=== PATIENT | male | born 1985 | race Caucasian/White ===

== ENCOUNTER → 2017-09-28 | Outpatient (REF) ==
--- NOTE | 2017-09-28 14:02 | REP ---
LEFT ANKLE, THREE VIEWS: HISTORY: Pain. There is no acute fracture or dislocation. The joint space is normal in appearance. IMPRESSION: There is no acute fracture or dislocation. Signed by J Carlos Vasques MD 09/28/2017 02:05 P
== END ==
LOC: M RAD 11:09
PROVIDERS: ATTEND Nurse Practitioner Family
DX: M25.572 Pain in left ankle and joints of left foot (principal)

== ENCOUNTER 2020-05-29 19:39 | Emergency (ER) | payer OTHER ==
[~2020-05-29] VITALS: Ht 193 cm; Wt 95.9 kg
[2020-05-29] MEDS ORDERED: LIDOCAINE 2% MDV 20ML VIAL SC ONE (21:15)
[2020-05-29] MEDS ORDERED: CLINDAMYCIN 600 MG in IV 1 EA IV ONE (21:30)
[2020-05-29] MEDS ORDERED: CLEO300C2 PO (22:24)
[2020-05-29 22:48] VITALS: BP 128/80
--- NOTE | 2020-05-31 08:08 | REP ---
LEFT 5TH FINGER SERIES: 05/29/2020. CLINICAL HISTORY: Trauma, evaluate bony involvement. FINDINGS: Four views are provided. I see no radiopaque foreign body. Appears to be a soft tissue laceration distally. No fracture, avulsion, or focal bone lesion. IP joints, MCP joint, phalanges, and metacarpals visible were unremarkable. IMPRESSION: 1. Soft tissue injury distal 5th finger near the IP joint. No fracture, foreign body, or focal bone lesion. Electronically Signed by Stanley Hardin MD 05/31/2020 08:46 A
== END 2020-05-29 22:48 | disposition home or self-care (01) ==
LOC: M ED 19:39
DX: S61.217A Laceration without foreign body of left little finger without damage to nail, initial encounter (principal); W26.0XXA Contact with knife, initial encounter; Y92.099 Unspecified place in other non-institutional residence as the place of occurrence of the external cause; Y93.89 Activity, other specified; Y99.9 Unspecified external cause status; Z88.0 Allergy status to penicillin